=== PATIENT | male | born 1965 | race Asian ===

== ENCOUNTER 2020-06-26 10:16 | Emergency (ER) | payer MEDICAID, OTHER ==
[~2020-06-26] VITALS: Ht 144.8 cm; Wt 50.9 kg
[2020-06-26] MEDS ORDERED: nitroGLYCERIN 0.4mg SUBLingual tab SL PRN (11:10)
[2020-06-26] MEDS ORDERED: aspirin 81mg tab.chew PO ONE (11:10)
[2020-06-26 11:15] LABS: BASOPHILS % (AUTO) 0.2 % (0-1); EOSINOPHILS # (AUTO) 0.1 X10'3 (0-0.9); EOSINOPHILS % (AUTO) 2.1 % (0-6); HEMATOCRIT 29.5 % (42.0-52.0); HEMOGLOBIN 9.8 g/dl (14.0-17.9); LYMPHOCYTES # (AUTO) 0.5 X10'3 (1.1-4.8); LYMPHOCYTES % (AUTO) 8.1 % (21-51); MEAN CORPUSCULAR HEMOGLOBIN 29.9 PG (27.0-31.0); MEAN CORPUSCULAR HGB CONC 33.2 g/dL (33.0-36.5); MEAN PLATELET VOLUME 8.3 FL (7.4-10.4); MONOCYTES # (AUTO) 0.6 X10'3 (0-0.9); MONOCYTES % (AUTO) 8.8 % (2-12); NEUTROPHILS # (AUTO) 5.1 X10'3 (1.8-7.7); NEUTROPHILS % (AUTO) 80.8 % (42-75); PLATELET COUNT 127 X10'3 (140-440); RED BLOOD COUNT 3.28 X10'6 (4.70-6.10); RED CELL DISTRIBUTION WIDTH 15.9 % (11.5-14.5); WHITE BLOOD COUNT 6.3 X10'3 (4.5-11.0)
[2020-06-26 11:32] LABS: ALANINE AMINOTRANSFERASE 70 U/L (12-78); ALBUMIN 2.9 G/DL (3.4-5.0); ALBUMIN/GLOBULIN RATIO 0.7 (1.1-1.5); ALKALINE PHOSPHATASE 137 IU/L (46-116); ANION GAP 14 (8-16); ASPARTATE AMINO TRANSFERASE 14 U/L (10-37); BILIRUBIN,TOTAL 0.5 MG/DL (0.1-1.0); BLOOD UREA NITROGEN 36 MG/DL (7-18); BUN/CREATININE RATIO 12.8 (5.4-32.0); CALCIUM 8.5 MG/DL (8.5-10.1); CHLORIDE 110 MMOL/L (99-107); CREATININE 2.81 MG/DL (0.60-1.10); GLUCOSE 77 MG/DL (70-104); POTASSIUM 4.3 MMOL/L (3.5-5.1); SODIUM 144 MMOL/L (135-145); TOTAL PROTEIN 7.3 G/DL (6.4-8.2); eGFR 24 ML/MIN
[2020-06-26] MEDS ORDERED: pantoprazole 40 MG vial IV ONE (12:00)
[2020-06-26] MEDS ORDERED: normal saline 1000ML IV soln IV ONE (12:00)
[2020-06-26] MEDS ORDERED: niCARDipine-NS 40mg/200ml IVPB 200 ML IV SCH (12:55)
[2020-06-26] MEDS ORDERED: esmolol/sodium cl bag 250 ML IV SCH (13:00)
[2020-06-26] MEDS ORDERED: normal saline 1000ml 1,000 ML IV SCH (13:03)
[2020-06-26] MEDS ORDERED: LIDOcaine 2% 10ml TOPICAL JELLY (Urojet) TP ONE (13:05)
[2020-06-26] MEDS ORDERED: potassium CL 10mEq/100ml bag 100 ML IV PRN ×2 (13:05)
[2020-06-26] MEDS ORDERED: acetaminophen 325mg tablet PO PRN ×2 (13:05)
[2020-06-26] MEDS ORDERED: HYDROcodone/acetaminophen 10/325mg tab PO PRN (13:05)
[2020-06-26] MEDS ORDERED: morphine 4 MG/ML inj SYRINge IV PRN (13:05)
[2020-06-26] MEDS ORDERED: ondansetron/PF 4mg/2ml inj IV PRN (13:05)
[2020-06-26] MEDS ORDERED: potassium Cl 20 mEq SR tablet PO PRN ×2 (13:05)
[2020-06-26] MEDS ORDERED: morphine 2 MG/ML inj. syringe IV PRN (13:05)
[2020-06-26] MEDS ORDERED: iohexol 350MG/ML 100ml bottle IV ONE (13:09)
[2020-06-26] MEDS ORDERED: NO HOME MEDS (13:13)
[2020-06-26] MEDS ORDERED: esmolol/sodium cl bag 250 ML IV PRN (13:13)
[2020-06-26] MEDS: labetalol inj. 250 MG in normal saline 250ml IV soln 200 ML IV SCH ×3 (14:52→15:56)
--- NOTE | 2020-06-26 15:15 | NUR ---
pt denies nay cp at this time but still c/o back pain .pt sister at bedside using phone at this time.
--- NOTE | 2020-06-26 15:20 | NUR ---
MD AT BEDSIDE SPEAKING TO FAMILY. ARTERIAL LINE BEING PLACED. MD ORDERED LABATOLOL
--- NOTE | 2020-06-26 15:20 | NUR ---
Alvin garrido in [facility] - 06/26/20 at 1637 by SARABJIT MD AT BEDSIDE SPEAKING TO PATIENT AND FAMILY. ART LINE BEING PLACED, ORDERED TRACY ROGERS
--- NOTE | 2020-06-26 15:31 | NUR ---
muñoz placed 16 f coude.pt tolerated procedure well.
--- NOTE | 2020-06-26 15:41 | NUR ---
labetalol rate changed to 1.5mg/min. bp 180/1117. hr 79,chest pain 2/10.
[2020-06-26 15:56] VITALS: BP 166/86
[2020-06-26 16:35] LABS: OCCULT BLOOD STOOL NEGATIVE (Neg)
--- NOTE | 2020-06-26 17:00 | NUR ---
PT. WAS TRANSFERER TO [facility] REPORT WAS GIVEN TO RECIEVING NURSE AT FACILITY PRIOR TO TRANSFER. I WAS ON BREAK WHILE PATIENT WAS BEING TRANSFERED AND PATIENT WAS DCd OUT OF THE SYSTEM BEFORE I COULD FILL OUT [facility]
[2020-06-26] MEDS ORDERED: docusate sod 100mg capsule PO SCH (20:00)
[2020-06-26] MEDS ORDERED: sennosides/docusate sodium tablet PO SCH (21:00)
== END 2020-06-26 18:30 | disposition short-term general hospital (02) ==
LOC: ER 10:17 → ED HOLD 13:03 → UNDOADMIN 13:03 → UNDODISIN 18:30 → ER 18:30
DX: N17.9 Acute kidney failure, unspecified (principal); I71.00 Dissection of unspecified site of aorta; I10 Essential (primary) hypertension; D64.9 Anemia, unspecified; F17.200 Nicotine dependence, unspecified, uncomplicated
CPT/HCPCS: 36415; 71045; 71275; 74174; 74176; 80053; 82272; 83880; 84484; 85025; 85610; 86885; 86900; 86901; 86920; 87635; 93005; 93308; 96361; 96365; 96366; 96375; 99291; 99292; C9113; J2270; J7030; J7050; P9016; Q9967; 96360; 96374; 99285; G0378; J3490